=== PATIENT | female | born 1945 | race Asian ===

== ENCOUNTER → 2021-11-14 | Emergency (ER) | payer OTHER ==
[~2021-11-14] VITALS: Ht 152.4 cm; Wt 40.8 kg
[~2021-11-14] MED LIST: TRAM50TA2 PO; TRAMADOL HCL 50 MG TABLET ONE; TRAMADOL HCL 50 MG TABLET PO ONE
--- NOTE | 2021-11-14 19:39 | NUR ---
TO ER BED 3. [id number] FROM HOME C/O L ELBOW AND L HIP PAIN AFTER GLF. PT STATES "MISSED A STEP". DENIES ANY HEAD TRAUMA. - KO. PAIN 02/10 ON P/S. CONNECTED TO MONITOR. FALL PRECAUTIONS IN PLACE. AWAITING MD MONTENEGRO
--- NOTE | 2021-11-14 19:46 | NUR ---
BIBA FROM HOME A/O X3. PT C/O L ELBOW AND L HIP PAIN AFTER GLF. PT STATES "MISSED A STEP". DENIES ANY HEAD TRAUMA. DAUGHTER AT BEDSIDE.
--- NOTE | 2021-11-14 19:46 | NUR ---
[employer] AT BEDSIDE
--- NOTE | 2021-11-14 20:30 | NUR ---
C. SWAB NOT REQUIRED PT WILL NOT BE ADMITTED PER MD
--- NOTE | 2021-11-14 20:34 | NUR ---
DISCHARGE PAPERS GIVEN TO PTValerie
[2021-11-14 20:43] VITALS: BP 166/80
== END | disposition home or self-care (01) ==
LOC: ER 19:36
DX: S42.412A Displaced simple supracondylar fracture without intercondylar fracture of left humerus, initial encounter for closed fracture (principal); I10 Essential (primary) hypertension; E11.9 Type 2 diabetes mellitus without complications; Z88.8 Allergy status to other drugs, medicaments and biological substances; W18.30XA Fall on same level, unspecified, initial encounter; Y93.01 Activity, walking, marching and hiking; Y92.89 Other specified places as the place of occurrence of the external cause; Y99.8 Other external cause status
CPT/HCPCS: 73080-TC; 73502